=== PATIENT | female | born 1995 | race Caucasian/White ===

== ENCOUNTER 2017-08-12 12:58 | Emergency (ER) | payer BC ==
--- NOTE | 2017-08-12 13:20 | EDPHY ---
H & P Stated Complaint: sore neck, rash Time Seen by Provider: 08/12/17 13:19 - Personal History LMP (Females 10-55): Now Current Tetanus/Diphtheria Vaccine: Yes Current Tetanus Diphtheria and Acellular Pertussis (TDAP): Yes - Medical/Surgical History Hx Asthma: Yes Hx Chronic Respiratory Disease: No Hx Diabetes: No Hx Cardiac Disease: No Hx Renal Disease: No Hx Cirrhosis: No Hx Alcoholism: No Hx HIV/AIDS: No Hx Splenectomy or Spleen Trauma: No Other PMH: strep throat, asthma, anxiety, - Social History Smoking Status: Never smoked Constitutional: Initial Vital Signs Temperature (C) 37.9 C 08/12/17 13:13 Heart Rate 134 H 08/12/17 13:13 Respiratory Rate 16 08/12/17 13:13 Blood Pressure 115/87 H 08/12/17 13:13 O2 Sat (%) 96 08/12/17 13:13 O2 Delivery Mode Room Air Allergies/Adverse Reactions: Penicillins Allergy (Verified 08/12/17 13:12) Home Medications: Medication Instructions Recorded AZITHROMYCIN [Z-PACK] 250 mg PO DAILY #1 packet 08/12/17 Penicillin VK 08/12/17 Medical Decision Making ED Course/Re-evaluation: CHIEF COMPLAINT: Neck pain, fever, rash on arms HISTORY OF PRESENT ILLNESS: The patient is a 21 y/o female complaining of neck pain, fever, and a rash on her arms. 4 days ago, she developed right-sided neck pain, fever, and chills. She went to an urgent care and tested positive for strep. She was prescribed penicillin and has been taking it for 1.5 days, but this had not improved her symptoms. She also developed a rash on her arms after starting penicillin. The pain in her neck is now radiating to the back of her neck and base of her skull ; it is difficult to turn her neck due to swollen lymph nodes. Her fever has not broken with medication. Denies shortness of breath, headache, chest pain, paresthesias, numbness, cough, or other pertinent symptoms. REVIEW OF SYSTEMS: A 10 point review of systems was performed and is negative with the exception of the elements mentioned in the history of present illness. PHYSICAL EXAM: HR, BP, O2 Sat, RR. Temp noted General Appearance: Alert, well hydrated, appropriate, and non-toxic appearing. Head: Atraumatic without scalp tenderness or obvious injury Eyes: Pupils equal, round, reactive to light and accommodation, EOMI, no trauma , no injection. Ears: Clear bilaterally, no perforation, normal landmarks Nose: Atraumatic, no rhinorrhea, clear. Throat: Pharyngeal erythema, There is no erythema or exudates, no lesions, normal tonsils, mucus membranes moist. Neck: Anterior and posterior cervical lymphadenopathy. Respiratory: No retractions, no distress, no wheezes, and no accessory muscle use. Lungs are clear to auscultation bilaterally. Cardiovascular: Regular rate and rhythm, no murmurs, rubs, or gallops. Good capillary refill all extremities. Gastrointestinal: Abdomen is soft, nontender, non-distended, no masses, no rebound, no guarding, no peritoneal signs. Musculoskeletal: Normal active ROM of all extremities, atraumatic. Neurological: Alert, appropriate, and interactive. Nonfocal neuro. Skin: Diffuse papular rash on upper extremities, good turgor, no nodules on palpation. Past medical history: Strep throat, asthma, anxiety Past surgical history: Denies Family history: Denies Social history: Student at , originally from [place] DIFFERENTIAL DIAGNOSIS: The differential diagnosis for the patient's fever included but was not limited to pneumonia, urinary tract infection, viral syndrome, meningitis, and sepsis. MEDICAL DECISION MAKING: The patient is a 21 y/o female presenting with neck pain and fever for 4 days. On exam she has pharyngeal erythema, a papular rash on her upper extremities. I suspect the rash is secondary to starting penicillin 2 days ago. She also has anterior and posterior cervical lymphadenopathy, which I suspect is the cause for the pain associated with moving her neck. Labs ordered. 2L IV NS and 30mg IV Ketoralac administered. 1420: Patient's laboratory results are normal. She is not a candidate for a lumbar puncture as her stiff neck is most likely due to the cervical lymphadenopathy. 1430: Reassessed patient and discussed laboratory results. She is feeling better. I have discussed not preforming a lumbar puncture; patient is comfortable with this plan. I have advised her to stop taking Penicillin due to the papular rash she developed. Return precautions provided; patient is comfortable with this plan. - Data Points Laboratory Results: Laboratory Results 08/12/17 13:40 08/12/17 13:40 08/12/17 08/12/17 08/12/17 13:40 13:40 13:40 WBC 12.18 10^3/uL H 10^3/uL (3.80-9.50) RBC 4.31 10^6/uL 10^6/uL (4.18-5.33) Hgb 12.9 g/dL g/dL (12.6-16.3) Hct 38.2 % % (38.0-47.0) MCV 88.6 fL fL (81.5-99.8) MCH 29.9 pg pg (27.9-34.1) MCHC 33.8 g/dL g/dL (32.4-36.7) RDW 13.4 % % (11.5-15.2) Plt Count 361 10^3/uL 10^3/uL (150-400) MPV 9.9 fL fL (8.7-11.7) Neut % (Auto) 85.2 % H % (39.3-74.2) Lymph % (Auto) 7.1 % L % (15.0-45.0) [place] % (Auto) 5.7 % % (4.5-13.0) Eos % (Auto) 1.2 % % (0.6-7.6) Baso % (Auto) 0.5 % % (0.3-1.7) Nucleat RBC Rel Count 0.0 % % (0.0-0.2) Absolute Neuts (auto) 10.37 10^3/uL H 10^3/uL (1.70-6.50) Absolute Lymphs (auto) 0.87 10^3/uL L 10^3/uL (1.00-3.00) Absolute Monos (auto) 0.69 10^3/uL 10^3/uL (0.30-0.80) Absolute Eos (auto) 0.15 10^3/uL 10^3/uL (0.03-0.40) Absolute Basos (auto) 0.06 10^3/uL 10^3/uL (0.02-0.10) Absolute Nucleated RBC 0.00 10^3/uL 10^3/uL (0-0.01) Immature Gran % 0.3 % % (0.0-1.1) Immature Gran # 0.04 10^3/uL 10^3/uL (0.00-0.10) Sodium 143 mEq/L mEq/L (135-145) Potassium 4.0 mEq/L mEq/L (3.5-5.2) Chloride 106 mEq/L mEq/L (97-110) Carbon Dioxide 20 mEq/l L mEq/l (22-31) Anion Gap 17 mEq/L H mEq/L (8-16) BUN 10 mg/dL mg/dL (7-23) Creatinine 0.8 mg/dL mg/dL (0.6-1.0) Estimated GFR > 60 Glucose 81 mg/dL mg/dL (70-100) Calcium 9.7 mg/dL mg/dL (8.5-10.4) Beta HCG, Qual NEGATIVE Nasal Influenza A PCR Nasal Influenza B PCR Monoscreen NEGATIVE (NEGATIVE) 08/12/17 13:40 WBC RBC Hgb Hct MCV MCH MCHC RDW Plt Count MPV Neut % (Auto) Lymph % (Auto) [place] % (Auto) Eos % (Auto) Baso % (Auto) Nucleat RBC Rel Count Absolute Neuts (auto) Absolute Lymphs (auto) Absolute Monos (auto) Absolute Eos (auto) Absolute Basos (auto) Absolute Nucleated RBC Immature Gran % Immature Gran # Sodium Potassium Chloride Carbon Dioxide Anion Gap BUN Creatinine Estimated GFR Glucose Calcium Beta HCG, Qual Nasal Influenza A PCR NEGATIVE FOR FLU A (NEGATIVE) Nasal Influenza B PCR NEGATIVE FOR FLU B (NEGATIVE) Monoscreen Medications Given: Discontinued Medications Sodium Chloride (Ns) 2,000 mls @ 6,000 mls/hr IV ONCE ONE Stop: 08/12/17 14:11 Last Admin: 08/12/17 14:07 Dose: 2,000 mls Ketorolac Tromethamine (Toradol) 30 mg IVP EDNOW ONE Stop: 08/12/17 13:49 Last Admin: 08/12/17 13:51 Dose: 30 mg Departure - Departure Disposition: Home, Routine, Self-Care Clinical Impression: Lymphadenopathy, Strep throat Condition: Good Instructions: Strep Throat (ED), Lymphadenopathy (ED) Additional Instructions: 1. Stop taking Penicillin. 2. Take the Z-pack as instructed. 3. Follow up with your primary care provider in the next 2-3 days. 4. Return to the emergency department if you experience chest pain, shortness of breath, inability to move neck or other worsening of your symptoms. 5. You do not have mono or the flu. Referrals: JOSÉ MIGUEL RIVAS [Other] - As per Instructions Prescriptions: AZITHROMYCIN [Z-PACK] 250 mg PO DAILY #1 packet Report Scribed for: Bharat Gamboa Report Scribed by: Mai Bell Date of Report: 08/12/17 Time of Report: 13:20
[2017-08-12] MEDS ORDERED: KETOROLAC 30 MG/1 ML SDV ONE (13:40)
[2017-08-12] MEDS ORDERED: KETOROLAC 30 MG/1 ML SDV IVP ONE (13:48)
[2017-08-12 13:51] LABS: PLATELET COUNT 361 10^3/uL (150-400)
[2017-08-12] MEDS ORDERED: NS 2,000 ML IV ONE (13:52)
[2017-08-12 14:10] VITALS: BP 112/72; PULSE 105; RESP 15; TEMP 98.4; O2SAT 97
== END 2017-08-12 15:02 | disposition home or self-care (01) ==
DX: R59.0 Localized enlarged lymph nodes (principal); J02.0 Streptococcal pharyngitis; J45.909 Unspecified asthma, uncomplicated
CPT/HCPCS: 96374; J1885